=== PATIENT | male | born 1950 | race Caucasian/White ===

== ENCOUNTER 2025-01-31 15:35 | Emergency (ER) | payer OTHER ==
[~2025-01-31] VITALS: Ht 177.8 cm; Wt 82.2 kg
[2025-01-31 15:59] VITALS: BP 121/71; PULSE 83; RESP 18; TEMP 98.3; O2SAT 96
[2025-01-31 16:54] LABS: Basophils # (auto) 0.1 10 ^3/uL (0-0.2); Basophils % (auto) 0.6 % (0.0-2.0); Eosinophils # (auto) 0.1 10 ^3/uL (0-0.8); Eosinophils % (auto) 0.4 % (0.0-7.0); Hematocrit 42.7 % (41.0-53.0); Hemoglobin 14.4 g/dL (13.5-17.5); Lymphocytes # (auto) 2.4 10 ^3/uL (0.4-5.4); Lymphocytes % (auto) 20.9 % (10.0-50.0); Mean Corpuscular Hemoglobin 31.2 pg (28.0-32.0); Mean Corpuscular Hgb Conc. 33.8 g/dL (32.0-36.0); Mean Corpuscular Volume 92.3 fL (80.0-100.0); Monocytes # (auto) 1.1 10 ^3/uL (0-1.3); Monocytes % (auto) 9.1 % (0.0-12.0); Platelet Count (auto) 311 10^3/uL (140-450); Red Blood Cells 4.63 10^6/uL (4.5-5.90); Red Cell Distribution Width 13.7 % (11.8-14.3); White Blood Cell 11.7 10^3/uL (4.4-10.8)
[2025-01-31 17:04] LABS: Chloride 105 mmol/L (98-107); Potassium 4.7 mmol/L (3.5-5.1); Sodium 137 mmol/L (136-145)
[2025-01-31 17:05] LABS: Anion Gap 5 (5-15); Calcium 10.1 mg/dL (8.7-10.4); Carbon Dioxide 27 mmol/L (20-31)
[2025-01-31 17:10] LABS: Rapid Strep A Screen-Throat Negative
[2025-01-31 17:10] LABS: BUN/Creatinine Ratio 10.3 (10.0-20.0); Blood Urea Nitrogen 9 mg/dL (9-23); Glucose 96 mg/dL (74-106)
[2025-01-31] MEDS: IOHEXOL 300 MG/ML 100ML BOTTLE IJ ONE (17:43)
--- NOTE | 2025-01-31 17:53 | ED.PDOC ---
Eye-HPI HPI Comments 74-year-old male presents for a sore throat x4 days that is associated with a tender lump to the left cervical region Not tried medication for the symptoms listed above Denies having this before Denies chest pain shortness of breath Denies inability to move neck Denies difficulty swallowing nor persistent salivation Denies fevers chills night sweats Denies persistent cough, runny nose, congestion Denies loss of appetite, unintentional weight loss over the past 3 months Denies voice changes Denies history of asthma or seasonal allergies Chief Complaint: Sore Throat Time Seen by MD: 16:13 Reviewed Notes: Nurses Notes, Medications, Allergies Allergies: Coded Allergies: NO KNOWN ALLERGIES (Unverified , 01/31/25) Information Source: Patient Mode of Arrival: Ambulatory Past Medical History PAST MEDICAL HISTORY: Denies Surgical History: Denies all surgeries Family History Family History: Reviewed,noncontributory to illness Social History Smoker: Non-Smoker Alcohol: Denies ETOH Use Drugs: Denies Drug Use All Other Systems: Reviewed and Negative (per hpi) Physical Exam General Appearance: No Apparent Distress, Normal HEENT: Head (Normocephalic atraumatic), Normal ENT Inspection, TMs Normal, Other (Moist mucous membranes. Unable to visualize uvula. No tripod position. Left cervical lymphadenopathy TTP) Neck: Full Range of Motion, Non-Tender, Normal, Normal Inspection Respiratory: Chest Non-Tender, Lungs Clear, No Accessory Muscle Use, No Respiratory Distress, Normal Breath Sounds Cardiovascular: No Murmur, No Gallop, Regular Rate/Rhythm Breast Exam: Deferred Gastrointestinal: No Organomegaly, Non Tender, No Pulsatile Mass, Normal Bowel Sounds, Soft Genitalia: Deferred Pelvic: Deferred Rectal: Deferred Extremities: No calf tenderness, Normal capillary refill, Normal inspection, Normal range of motion, Non-tender, No pedal edema Musculoskeletal : Apperance: Normal Neurologic: Alert, No Motor Deficits, Normal Affect, Normal Mood, No Sensory Deficits Cerebellar Function: Normal Reflexes: Normal Skin: Dry, Normal Color, Warm Lymphatic: No Adenopathy Was a procedure done? Was a procedure done?: No EENT DIFF Eye: Other Sore Throat: Epiglottitis, Peritonsillar Abscess, Peritonsillar Cellulitis, Pharyngitis, Streptococcal, Viral Pharyngitis X-Ray, Labs, Meds, VS Vital Signs Date Time Temp Pulse Resp B/P (MAP) Pulse Ox O2 Delivery O2 Flow Rate FiO2 01/31/25 15:59 98.3 83 18 121/71 (88) 96 98.3 Lab Test 01/31/25 16:35 01/31/25 16:30 Range/Units White Blood Count 11.7 H 4.4-10.8 10^3/uL Red Blood Count 4.63 4.5-5.90 10^6/uL Hemoglobin 14.4 13.5-17.5 g/dL Hematocrit 42.7 41.0-53.0 % Mean Corpuscular Volume 92.3 80.0-100.0 fL Mean Corpuscular Hemoglobin 31.2 28.0-32.0 pg Mean Corpuscular Hemoglobin Concent 33.8 32.0-36.0 g/dL Red Cell Distribution Width 13.7 11.8-14.3 % Platelet Count 311 140-450 10^3/uL Mean Platelet Volume 7.1 6.9-10.8 fL Neutrophils (%) (Auto) 69.0 37.0-80.0 % Lymphocytes (%) (Auto) 20.9 10.0-50.0 % Monocytes (%) (Auto) 9.1 0.0-12.0 % Eosinophils (%) (Auto) 0.4 0.0-7.0 % Basophils (%) (Auto) 0.6 0.0-2.0 % Neutrophils # (Auto) 8.0 1.6-8.6 10 ^3/uL Lymphocytes # (Auto) 2.4 0.4-5.4 10 ^3/uL Monocytes # (Auto) 1.1 0-1.3 10 ^3/uL Eosinophils # (Auto) 0.1 0-0.8 10 ^3/uL Basophils # (Auto) 0.1 0-0.2 10 ^3/uL Nucleated Red Blood Cells 0.0 % Sodium Level 137 136-145 mmol/L Potassium Level 4.7 3.5-5.1 mmol/L Chloride Level 105 98-107 mmol/L Carbon Dioxide Level 27 20-31 mmol/L Anion Gap 5 5-15 Blood Urea Nitrogen 9 9-23 mg/dL Creatinine 0.87 0.700-1.30 mg/dL Glomerular Filtration Rate Calc 92 >90 mL/min BUN/Creatinine Ratio 10.3 10.0-20.0 Serum Glucose 96 74-106 mg/dL Calcium Level 10.1 8.7-10.4 mg/dL Group A Streptococcus Rapid Negative Microbiology Date/Time Source Procedure Growth Status 01/31/25 16:30 Throat Nose/Throat Culture - Preliminary Resulted 74-year-old male presents for a sore throat x4 days that is associated with a tender lump to the left cervical region Labs ordered and reviewed. Ordered imaging, pending results at this time. Signed out to Haile at 18:15 for continuity of care. PATIENT: NITIN DUMONTACCT: [id number]: [id number] : 1950 LOC: ER ROOM / BED: / AGE / SEX: 74 / M ADM STATUS: REG ER SERVICE 1715 ORDERING PHYSICIAN: JENNIFER COPE NP PROCEDURE(s): NK2CT - NECK WITH CONTRAST SOFT REASON: Throat pain ORDER NUMBER(s): [id number], ACCESSION NUMBER(s): [id number] EXAM: CT NECK WITH CONTRAST SOFT INDICATION: Throat pain TECHNIQUE: Volumetric multidetector CT images of the cervical soft tissues were obtained after administration of 100 ml low osmolar intravenous contrast. All CT scans at this facility use dose modulation, iterative reconstruction, and/or weight based dosing when appropriate to reduce radiation dose to as low as reasonably achievable. COMPARISON: None FINDINGS: [ORBITS, PARANASAL SINUSES, AND SKULL BASE]: Air-fluid level in the left sphenoid sinus. Paranasal sinus left maxillary opacification. [NASOPHARYNX: Normal. [SUPRAHYOID NECK]: In the area of concern, peripherally enhancing, central fluid attenuating structure which may represent an abscess versus centrally necrotic mass measuring 2.6 x 2.1 cm located along the left floor of the mouth likely coursing along the mylohyoid muscle belly (axial 56) . Symmetric appearance of the submandibular and parotid glands. Left palatine tonsillolith. [INFRAHYOID NECK]: Normal appearance of the larynx, hypopharynx, and supraglottis. [THYROID]: Normal appearance of the thyroid gland. [LYMPH NODES]: There is no pathologically enlarged or necrotic lymph nodes. [VASCULATURE STRUCTURES]: The vascular structures of the neck appear patent. [OTHER]: Small amount of lobular air trapping in bilateral upper lobes at the dependent portions. The limited visualized portions of the brain are unremarkable. The osseous structures are unremarkable. IMPRESSION: 1. In the area of concern, peripherally enhancing, central fluid attenuating structure which may represent an abscess versus centrally necrotic mass measuring 2.6 x 2.1 cm located along the left floor of the mouth likely coursing along the mylohyoid muscle belly. ATED BY: LIBORIO SMITH MD DICTATED DATE/TIME: 01/31/251813 SIGNED BY: LIBORIO SMITH MD SIGNED DATE/TIME: 01/31/251813 CC: Patient speaking in clear and complete sentences, resting comfortably at bedside, tolerating P.O. fluids well, in no distress CBC reviewed-WBC 11.7 BMP reviewed without any significant abnormalities Group a strep reviewed-negative CT neck with contrast reviewed Discussed with patient the need for transfer for higher level of care to another hospital due to the above findings on the CT Neck with IV contrast and need for an ENT. Patient verbalized understanding, refusing transfer and states he would like to sign himself out against medical advice and will drive himself down to another hospital with an ENT Several attempts were made to convince patient to stay for further evaluation/need for transfer without success Risks of signing out AMA discussed including risk of partial/permanent disability, risks of sepsis and risk of . Patient alert and oriented x4 prior to signing out AMA and verbalized full understanding Patient signed out of ER against medical advice Time of 1ST Reevaluation: 17:53 Reevaluation 1ST: Improved Patient Education/Counseling: Diagnosis, Treatment Family Education/Counseling: Diagnosis, Treatment Change of Shift?: Yes (18:00- Ednorsed patient from CRISTINA Cope at shift change) Departure 1 Departure Time of Disposition: 19:03 Impression: Primary Impression: Mass of left side of neck Disposition: 07 LEFT AGAINST MEDICAL ADVICE Condition: Critical Critical Care Note Critical Care Time?: No Stability Stability form required: No Heart Score Heart Score: Heart Score Response (Comments) Value History N/A 0 EKG N/A 0 Age N/A 0 Risk Factors N/A 0 Troponin N/A 0 Total 0 JENNIFER COPE NP Jan 31, 2025 17:53 HAILE HA Jan 31, 2025 19:10
--- NOTE | 2025-01-31 18:17 | DVH ---
EXAM: CT NECK WITH CONTRAST SOFT INDICATION: Throat pain TECHNIQUE: Volumetric multidetector CT images of the cervical soft tissues were obtained after admini stration of 100 ml low osmolar intravenous contrast. All CT scans at this facility use dose modulatio n, iterative reconstruction, and/or weight based dosing when appropriate to reduce radiation dose to as low as reasonably achievable. COMPARISON: None FINDINGS: [ORBITS, PARANASAL SINUSES, AND SKULL BASE]: Air-fluid level in the left sphenoid sinus. Paranasal si nus left maxillary opacification. [NASOPHARYNX: Normal. [SUPRAHYOID NECK]: In the area of concern, peripherally enhancing, central fluid attenuating structur e which may represent an abscess versus centrally necrotic mass measuring 2.6 x 2.1 cm located along the left floor of the mouth likely coursing along the mylohyoid muscle belly (axial 56) . Symmetric a ppearance of the submandibular and parotid glands. Left palatine tonsillolith. [INFRAHYOID NECK]: Normal appearance of the larynx, hypopharynx, and supraglottis. [THYROID]: Normal appearance of the thyroid gland. [LYMPH NODES]: There is no pathologically enlarged or necrotic lymph nodes. [VASCULATURE STRUCTURES]: The vascular structures of the neck appear patent. [OTHER]: Small amount of lobular air trapping in bilateral upper lobes at the dependent portions. The limited visualized portions of the brain are unremarkable. The osseous structures are unremarkable. IMPRESSION: 1. In the area of concern, peripherally enhancing, central fluid attenuating structure which may repr esent an abscess versus centrally necrotic mass measuring 2.6 x 2.1 cm located along the left floor o f the mouth likely coursing along the mylohyoid muscle belly.
== END 2025-01-31 18:58 | disposition left against medical advice (07) ==
LOC: ER 15:40
DX: R22.1 Localized swelling, mass and lump, neck (principal)
CPT/HCPCS: 36415; 70491; 80048; 85025; 87070; 87880; 99285; Q9967

== ENCOUNTER 2025-02-21 08:24 | Emergency (ER) | payer OTHER ==
[~2025-02-21] VITALS: Ht 177.8 cm; Wt 77.3 kg
[2025-02-21 10:13] VITALS: BP 109/60; PULSE 85; RESP 18; TEMP 97.8; O2SAT 96
--- NOTE | 2025-02-21 10:15 | ED.PDOC ---
General HPI Comments 74 year old male presents to the ED with a chief compliant of urinary retention onset 3 days. Patient states he has been experiencing urinary retention for the past 3 days, noticed abdomen is distended. Patient has also been experiencing constipation for the past 3 days. Denies any PMHx as well as hematuria, nausea, vomiting, diarrhea, headache, chest pain, fevers, chills. No other symptoms or modifying factors present at this time. Chief Complaint: Urinary Time Seen by MD: 10:00 Primary Care Provider: mariah Naidu notes: Medications, Allergies Allergies: Coded Allergies: NO KNOWN ALLERGIES (Unverified , 01/31/25) Information Source: Patient Mode of Arrival: Wheelchair Severity: Moderate Inability to void: Moderate Timing: Days Duration: Since onset Prehospital treatment: None Onset: Spontaneous Symptoms: Other (retention) History of: None Location: Suprapubic Penile discharge: None Modifying factors: None associated signs and symptoms: Dysuria Past Medical History PAST MEDICAL HISTORY: Denies Surgical History: Denies all surgeries Family History Family History: Reviewed,noncontributory to illness Social History Smoker: Non-Smoker Alcohol: Denies ETOH Use Drugs: Denies Drug Use Lives In: Home Constitutional: denies: chills, diaphoresis, fatigue, fever, malaise, sweats, weakness, others EENTM: denies: blurred vision, double vision, ear bleeding, ear discharge, ear drainage, ear pain, ear ringing, eye pain, eye redness, hearing loss, mouth pain, mouth swelling, nasal discharge, nose bleeding, nose congestion, nose pain, photophobia, tearing, throat pain, throat swelling, voice changes, others Respiratory: denies: cough, hemoptysis, orthopnea, SOB at rest, shortness of breath, SOB with excertion, stridor, wheezing, others Cardiovascular: denies: chest pain, dizzy spells, diaphoresis, Dyspnea on exertion, edema, irregular heart beat, left arm pain, lightheadedness, palpitations, PND, syncope, others Gastrointestinal: reports: constipated; denies: abdomen distended, abdominal pain, blood streaked bowels, diarrhea, dysphagia, difficulty swallowing, hematemesis, melena, nausea, poor appetite, poor fluid intake, rectal bleeding, rectal pain, vomiting, others Genitourinary: reports: others (retention); denies: burning, dysuria, flank pain, frequency, hematuria, incontinence, penile discharge, penile sore, pain, testicle pain, testicle swelling, urgency Neurological: denies: dizziness, fainting, headache, left sided numbness, left sided weakness, numbness, paresthesia, pre-existing deficit, right sided numbness, right sided weakness, seizure, speech problems, tingling, tremors, weakness, others Musculoskeletal: denies: back pain, gout, joint pain, joint swelling, muscle p ain, muscle stiffness, neck pain, others Integumetry: denies: bruises, change in color, change in hair/nails, dryness, laceration, lesions, lumps, rash, wounds, others Allergic/Immunocompromised: denies: Difficulty Healing, Frequent Infections, Hives, Itching, others Hematologic/Lymphatic: denies: anemia, blood clots, easy bleeding, easy bruising, swollen glands, others Endocrine: denies: excessive hunger, excessive sweating, excessive thirst, excessive urination, flushing, intolerance to cold, intolerance to heat, unexplained weight gain, unexplained weight loss, others Psychiatric: denies: anxiety, bipolar disorder, depression, hopeless, panic disorder, schizophrenia, sleepless, suicidal, others All Other Systems: Reviewed and Negative Physical Exam General Appearance: No Apparent Distress, Normal HEENT: Normal ENT Inspection, Pharynx Normal, TMs Normal Neck: Full Range of Motion, Non-Tender, Normal, Normal Inspection Respiratory: Chest Non-Tender, Lungs Clear, No Accessory Muscle Use, No Respiratory Distress, Normal Breath Sounds Cardiovascular: No Edema, No JVD, No Murmur, No Gallop, Normal Peripheral Pulses, Regular Rate/Rhythm Breast Exam: Deferred Gastrointestinal: No Organomegaly, Non Tender, No Pulsatile Mass, Normal Bowel Sounds, Soft Genitalia: Deferred Pelvic: Deferred Rectal: Deferred Extremities: No calf tenderness, Normal capillary refill, Normal inspection, Normal range of motion, Non-tender, No pedal edema Musculoskeletal : Apperance: Normal Neurologic: Alert, automation engineer II-XII nml as Tested, No Motor Deficits, Normal Affect, Normal Mood, No Sensory Deficits Cerebellar Function: Normal Reflexes: Normal Skin: Dry, Normal Color, Warm Lymphatic: No Adenopathy Was a procedure done? Was a procedure done?: No Differential Diagnosis Kidney stone (Female): N/A Kidney stone (Male): N/A Penile/Scrotal: Urolithiasis, Urinary Retention Urinary Problem (Male): Bladder Outlet, Bladder Obstruction Urinary Problem (Female): N/A X-Ray, Labs, Meds, VS Vital Signs Date Time Temp Pulse Resp B/P (MAP) Pulse Ox O2 Delivery O2 Flow Rate FiO2 02/21/25 10:13 97.8 85 18 109/60 (76) 96 97.8 02/21/25 08:58 98.1 82 18 109/68 (82) 97 98.1 Time of 1ST Reevaluation: 10:30 Reevaluation 1ST: Unchanged Patient Education/Counseling: Diagnosis, Treatment, Prognosis Family Education/Counseling: No Family Present Departure 1 Departure Time of Disposition: 10:42 (Patient presenting with the acute urinary retention. Patient had a Vaughn catheter placed with good return of urine. Patient also complaining of constipation we would like to try MiraLax at home.) Impression: Primary Impression: Acute urinary retention Additional Impression: Constipation Qualified Codes: K59.00 - Constipation, unspecified Disposition: HOME / SELF CARE / HOMELESS Condition: Stable Referrals: KIM ALEGRE MD Additional Instructions: You had acute urinary retention. You had a Vaughn catheter placed. You were referred to Urology. Please call for an appointment this week to evaluate the catheter and attempt removing it. For constipation you can take [id number] MiraLax daily. It is important to follow up with your regular doctor. If your symptoms worsen or you have any other concerns please return to the emergency room. Discharged With: Self Critical Care Note Critical Care Time?: No Stability Stability form required: No I personally scribed for KAJAL HUSAIN MD ([email or web address]) on 02/21/25 at 10:15. Electronically submitted by Cathy Dyson ([email or web address]). KAJAL HUSAIN MD February 21, 2025 10:15
== END 2025-02-21 11:02 | disposition home or self-care (01) ==
LOC: ER 08:24
DX: R33.9 Retention of urine, unspecified (principal); K59.00 Constipation, unspecified
CPT/HCPCS: 51702; 99284; A4315